=== PATIENT | female | born 1930 | race Caucasian/White ===

== ENCOUNTER 2017-05-22 15:45 | Emergency (ER) | payer MEDICARE ==
[~2017-05-22] VITALS: Ht 170.2 cm; Wt 85.3 kg
--- NOTE | 2017-05-22 15:45 | NUR ---
BIB [facility] FROM HOME, FEELING SICK, COUGH AND CONGESTION NOT IMPROVING AFTER TAKING UNKNOWN ABX. NAD NOTED. PT AAO X3, RR EVEN AND UNLABORED. VSS. PT PLACED IN GOWN AND MONITOR. MD AT BEDSIDE
[2017-05-22] MEDS ORDERED: ALBUTEROL FS 2.5 MG/3 ML VIAL.NEB ONE (15:59)
[2017-05-22] MEDS ORDERED: IPRATROPIUM NEB FS 0.5 MG/2.5 ML AMPUL.NEB ONE (15:59)
[2017-05-22] MEDS ORDERED: ALBUTEROL FS 2.5 MG/3 ML VIAL.NEB NEB ONE (16:00)
[2017-05-22] MEDS ORDERED: IPRATROPIUM NEB FS 0.5 MG/2.5 ML AMPUL.NEB NEB ONE (16:00)
[2017-05-22] MEDS ORDERED: IV NS 0.9% 1,000 ML BAG IV ONE (16:00)
[2017-05-22 16:06] LABS: BASOPHILS # (AUTO) 0.4 /CMM (0.0-0.2)
[2017-05-22 16:08] LABS: BASOPHILS % (AUTO) 4.2 % (0.0-2.0); EOSINOPHILS # (AUTO) 0.1 /CMM (0.0-0.7); EOSINOPHILS % (AUTO) 0.7 % (0.0-6.0); HEMATOCRIT 44 % (33-45); LYMPHOCYTES # (AUTO) 1.5 /CMM (0.8-4.8); LYMPHOCYTES % (AUTO) 17.1 % (20.0-44.0); MEAN CORPUSCULAR HEMOGLOBIN 29 PG (26.0-33.0); MEAN CORPUSCULAR HGB CONC 34 g/dl (31.0-36.0); MEAN CORPUSCULAR VOLUME 85 fL (82-100); MONOCYTES % (AUTO) 22.7 % (2.0-12.0); NEUTROPHILS % (AUTO) 55.3 % (43.0-81.0); PLATELET COUNT (AUTO) 207 /CMM (150-450); RDW COEFFICIENT OF VARIATION 14.1 (11.5-15.0); RED BLOOD CELL COUNT(AUTO) 5.19 MIL/uL (4.0-5.2)
[2017-05-22 16:13] LABS: CALCIUM, SERUM 8.9 mg/dL (8.5-10.1); CARBON DIOXIDE 24 mmol/L (21-32); CHLORIDE 98 mmol/L (98-107); GLUCOSE 151 mg/dL (74-106); POTASSIUM 3.7 mmol/L (3.5-5.1); SODIUM SERUM 133 mmol/L (136-145); UREA NITROGEN, BLOOD 24 mg/dL (7-18)
[2017-05-22 16:17] LABS: INR 0.95 (0.87-1.13); PROTHROMBIN TIME 9.9 SECS (9.5-12.7)
[2017-05-22 16:19] LABS: ALANINE AMINOTRANSFERASE 94 U/L (12-78); ALBUMIN 3.8 g/dL (3.4-5.0); ALKALINE PHOSPHATASE 101 U/L (46-116); ASPARTATE AMINOTRANSFERASE 86 U/L (15-37); BILIRUBIN,DIRECT 0.1 mg/dL (0.0-0.2); BILIRUBIN,TOTAL 0.4 mg/dL (0.2-1.0); TOTAL PROTEIN, SERUM 7.9 g/dL (6.4-8.2)
[2017-05-22 16:21] LABS: TROPONIN I < 0.017 ng/mL (0.00-0.056)
[2017-05-22 16:24] LABS: APPEARANCE,URINE Slightly Cloudy (CLEAR); BILIRUBIN,URINE Negative (NEGATIVE); BLOOD, URINE Trace-intact Ery/uL (NEGATIVE); KETONES,URINE 15 (NEGATIVE); LEUKOCYTE ESTERASE ,URINE Small (NEGATIVE); NITRITE, URINE Negative (NEGATIVE); PROTEIN,URINE 30 mg/dl (NEGATIVE); UGLUCOSE Negative (NEGATIVE); UROBILINOGEN,URINE 0.2 EU/dL (0.2)
[2017-05-22 16:25] LABS: COLOR,URINE Dark Yellow (YELLOW)
[2017-05-22 16:33] LABS: BACTERIA,URINE Many /HPF (None Seen); SQUAMOUS EPITHELIAL CELL,UR Few /HPF (None Seen); WBC,URINE 21-50 /HPF (0-3)
[2017-05-22] MEDS ORDERED: CEFTRIAXONE 1GM BAG (ER ONLY) 1 GM/50 ML PIGGYBACK IV ONE (17:30)
--- NOTE | 2017-05-22 19:02 | NUR ---
RECEIVED REPORT FROM [facility]ASS[facility] FOR [facility]
--- NOTE | 2017-05-22 19:17 | NUR ---
REQUESTED BLS TRANSPORTATION THROUGH [facility] WITH [facility]
--- NOTE | 2017-05-22 20:33 | NUR ---
REPORT GIVEN TO EMT FROM [facility] FOR [facility]. PT AWARE OF TRANSFER BACK TO HOME WITH ALL PERSONAL BELONGINGS. IV removed. Catheter intact and site benign. Pressure and 4x4 applied to site. No bleeding noted. PT TO BE TRASNFERRED VIA GURNEY.
[2017-05-22 20:46] VITALS: BP 149/109
== END 2017-05-22 20:47 | disposition home or self-care (01) ==
LOC: ER 15:46
DX: B34.9 Viral infection, unspecified (principal); N30.00 Acute cystitis without hematuria; R06.2 Wheezing
CPT/HCPCS: 36415; 71045-TC; 80048-TC; 80076-TC; 81000-TC; 83605-TC; 84484-TC; 85025-TC; 85730-TC; 87040-TC; 87086-TC; 87400; A4606; J0696; J7030; Z7610